=== PATIENT | male | born 1945 | race Caucasian/White ===

== ENCOUNTER 2020-01-27 19:57 | Emergency (ER) | payer OTHER ==
[~2020-01-27] VITALS: Ht 172.7 cm; Wt 81.7 kg
[2020-01-27] MEDS ORDERED: ACET500 PO (20:57)
[2020-01-27] MEDS ORDERED: AMLO5 PO (20:58)
[2020-01-27] MEDS ORDERED: ATOR20 PO (21:03)
[2020-01-27] MEDS ORDERED: RYTARY ER 48.71 EAC1 PO ×2 (21:05)
[2020-01-27] MEDS ORDERED: ARTIFICIAL TEAR15 M2 IO (21:06)
[2020-01-27] MEDS ORDERED: Catapres0.2 MG PO (21:07)
[2020-01-27] MEDS ORDERED: Vitamin D2000 UNIT PO (21:07)
[2020-01-27 21:08] LABS: BASOPHILS ABSOLUTE AUTO 0.07 K/mm3 (0.00-0.23); BASOPHILS PERCENT AUTO 1 % (0-2); EOSINOPHILS ABSOLUTE AUTO 0.14 K/mm3 (0.00-0.68); EOSINOPHILS PERCENT AUTO 1 % (0-6); Hematocrit 43.3 % (37.0-53.0); Hemoglobin 14.4 g/dL (13.5-17.5); IMMATURE GRAN ABSOLUTE AUTO 0.03 K/mm3 (0.00-0.10); IMMATURE GRAN PERCENT AUTO 0 % (0-1); LYMPHOCYTES ABSOLUTE AUTO 2.51 K/mm3 (0.84-5.20); LYMPHOCYTES PERCENT AUTO 23 % (21-46); MONOCYTES ABSOLUTE AUTO 1.17 K/mm3 (0.16-1.47); MONOCYTES PERCENT AUTO 11 % (4-13); Mean Corpuscular HGB 32.1 pg (26.0-34.0); Mean Corpuscular HGB Conc 33.3 g/dL (31.5-36.5); Mean Corpuscular Volume 97 fL (80-100); Mean Platelet Volume 10.3 fL (9.1-12.4); NEUTROPHILS ABSOLUTE AUTO 7.03 K/mm3 (1.96-9.15); NEUTROPHILS PERCENT AUTO 64 % (41-73); Platelet Count 279 K/mm3 (150-400); RDW Coefficient Variation 12.4 % (11.7-14.2); RDW Standard Deviation 45.1 fL (35.1-46.3); Red Blood Cell Count 4.48 M/mm3 (4.30-5.90); White Blood Cell Count 10.95 K/mm3 (4.00-11.30)
[2020-01-27] MEDS ORDERED: GABA400 PO (21:08)
[2020-01-27] MEDS ORDERED: DICL25ER PO (21:08)
[2020-01-27] MEDS ORDERED: DOCU100 PO (21:08)
[2020-01-27] MEDS ORDERED: HALO5 PO (21:09)
[2020-01-27] MEDS ORDERED: LATA.005SO RIGHTEYE (21:09)
[2020-01-27] MEDS ORDERED: LOSA25 PO (21:10)
[2020-01-27] MEDS ORDERED: LORA10ER PO (21:10)
[2020-01-27] MEDS ORDERED: MELA3 PO (21:11)
[2020-01-27] MEDS ORDERED: MEMANTINE HCL PO (21:11)
[2020-01-27] MEDS ORDERED: Milk Of Ma400 MG/5 M PO (21:12)
[2020-01-27] MEDS ORDERED: OMEP20ER PO (21:13)
[2020-01-27] MEDS ORDERED: POTA10T PO (21:14)
[2020-01-27] MEDS ORDERED: SENN187 PO (21:15)
[2020-01-27] MEDS ORDERED: QUET25 PO (21:15)
[2020-01-27] MEDS ORDERED: Thiamine HCl100 MG PO (21:16)
[2020-01-27 21:21] LABS: Alanine Aminotransfer (ALT/SGP 9 U/L (12-78); Albumin, Blood 4.2 g/dL (3.4-5.0); Albumin/Globulin Ratio 1.1 (0.8-1.8); Alk Phos 62 U/L (50-136); Anion Gap 8 mmol/L (6-16); Aspartate Aminotrans (AST/SGOT 26 U/L (12-37); Bilirubin, Total 0.6 mg/dL (0.1-1.0); Blood Urea Nitrogen 30 mg/dL (8-24); Bun/Creatinine Ratio 27.8 (12.0-20.0); CO2, Blood 24 mmol/L (21-32); Calcium, Blood 9.9 mg/dL (8.5-10.1); Chloride, Blood 114 mmol/L (98-108); Creatinine, Blood 1.08 mg/dL (0.60-1.20); Globulin, Blood 3.7 g/dL (2.2-4.0); Glomerular Filtration Rate >60 (60-); Glucose, Blood 109 mg/dL (70-99); Potassium, Blood 4.1 mmol/L (3.5-5.5); Sodium, Blood 146 mmol/L (136-145); Total Protein, Blood 7.9 g/dL (6.4-8.2)
[2020-01-27 22:11] LABS: Source, Urine Clean Catch
[2020-01-27 22:14] LABS: Bilirubin, Urine Neg (Neg); Blood, Urine 1+ (Neg); Glucose Qualitative, Urine Neg (Neg); Ketones, Urine 1+ (Neg); Leukocyte Esterase, Urine Neg (Neg); Nitrite, Urine Neg (Neg); Protein, Urine Neg (Neg); Urobilinogen, Urine NORM (Normal)
[2020-01-27 22:16] LABS: Appearance, Urine Clear (Clear); Color, Urine Yellow (P-Yellow)
[2020-01-27 22:20] LABS: Bacteria Few /hpf; Red Blood Cells, Urine 0-2 /hpf (0-2); Squamous Epithelial Cells Not Seen /hpf (Few); White Blood Cells, Urine 0-2 /hpf (0-5)
== END 2020-01-27 23:26 | disposition home or self-care (01) ==
LOC: ER 19:57
PROVIDERS: Emergency Medicine
DX: R41.82 Altered mental status, unspecified (principal); M54.2 Cervicalgia; Z88.8 Allergy status to other drugs, medicaments and biological substances; Z79.899 Other long term (current) drug therapy; W18.30XA Fall on same level, unspecified, initial encounter
CPT/HCPCS: 70450; 71045; 72125; 80053; 81001; 82140; 85025; 93005; 93010; 99285-25; A9270

== ENCOUNTER 2020-07-24 22:29 | Emergency (ER) | payer MEDICARE, OTHER ==
[~2020-07-24] VITALS: Ht 170.2 cm; Wt 70.3 kg
[~2020-07-24 22:29] MED LIST: ACET500 PO; AMLO5 PO; ARTIFICIAL TEAR15 M2 IO; ATOR20 PO; Catapres0.2 MG PO; DICL25ER PO; DOCU100 PO; GABA400 PO; HALO5 PO; LATA.005SO RIGHTEYE; LORA10ER PO; LOSA25 PO; MELA3 PO; MEMANTINE HCL PO; Milk Of Ma400 MG/5 M PO; OMEP20ER PO; POTA10T PO; QUET25 PO; RYTARY ER 48.71 EAC1 PO; SENN187 PO; Thiamine HCl100 MG PO; Vitamin D2000 UNIT PO
[2020-07-24 22:55] LABS: Calcium, Ionized (POC) 1.32 mmol/L (1.10-1.46); Chloride (POC) 103 mmol/L (98-108); Creatinine (POC) 0.8 mg/dL (0.8-1.3); Glucose (ISTAT POC) 98 mg/dL (70-99); Hemoglobin (POC) 11.9 g/dL (13.5-17.5); Potassium (POC) 3.7 mmol/L (3.5-5.5); Sodium (POC) 141 mmol/L (135-148); Total CO2 (POC) 26 mmol/L (21-32)
== END 2020-07-25 00:13 | disposition home or self-care (01) ==
LOC: ER 22:29
PROVIDERS: Emergency Medicine
DX: Z00.00 Encounter for general adult medical examination without abnormal findings (principal); Z79.899 Other long term (current) drug therapy; Z88.8 Allergy status to other drugs, medicaments and biological substances
CPT/HCPCS: 36415; 80047; 85014; 99284

== ENCOUNTER 2020-09-12 19:14 | Emergency (ER) | payer OTHER, MEDICARE ==
[~2020-09-12] VITALS: Ht 170.2 cm; Wt 63.5 kg
[2020-09-12 22:51] LABS: SARS-Cov-2 (COVID-19) PCR, MMC NEGATIVE (NEGATIVE)
[2020-09-13 00:01] LABS: BASOPHILS ABSOLUTE AUTO 0.07 K/mm3 (0.00-0.23); BASOPHILS PERCENT AUTO 1 % (0-2); EOSINOPHILS ABSOLUTE AUTO 0.14 K/mm3 (0.00-0.68); EOSINOPHILS PERCENT AUTO 2 % (0-6); Hematocrit 40.2 % (37.0-53.0); Hemoglobin 13.8 g/dL (13.5-17.5); IMMATURE GRAN ABSOLUTE AUTO 0.01 K/mm3 (0.00-0.10); IMMATURE GRAN PERCENT AUTO 0 % (0-1); LYMPHOCYTES PERCENT AUTO 23 % (21-46); MONOCYTES ABSOLUTE AUTO 0.75 K/mm3 (0.16-1.47); MONOCYTES PERCENT AUTO 11 % (4-13); Mean Corpuscular HGB 32.8 pg (26.0-34.0); Mean Corpuscular HGB Conc 34.3 g/dL (31.5-36.5); Mean Corpuscular Volume 96 fL (80-100); Mean Platelet Volume 10.1 fL (9.1-12.4); NEUTROPHILS ABSOLUTE AUTO 4.32 K/mm3 (1.96-9.15); NEUTROPHILS PERCENT AUTO 63 % (41-73); Platelet Count 225 K/mm3 (150-400); RDW Coefficient Variation 12.2 % (11.7-14.2); RDW Standard Deviation 43.1 fL (35.1-46.3); Red Blood Cell Count 4.21 M/mm3 (4.30-5.90); White Blood Cell Count 6.89 K/mm3 (4.00-11.30)
[2020-09-13 00:17] LABS: International Normalized Ratio 1.01; Prothrombin Time Results 10.9 Sec (9.7-11.5)
[2020-09-13 00:23] LABS: Alanine Aminotransfer (ALT/SGP 25 U/L (12-78); Albumin/Globulin Ratio 1.1 (0.8-1.8); Alk Phos 53 U/L (50-136); Anion Gap 5 mmol/L (6-16); Aspartate Aminotrans (AST/SGOT 23 U/L (12-37); Bilirubin, Total 0.4 mg/dL (0.1-1.0); Blood Urea Nitrogen 21 mg/dL (8-24); Bun/Creatinine Ratio 25.6 (12.0-20.0); CO2, Blood 26 mmol/L (21-32); Calcium, Blood 9.5 mg/dL (8.5-10.1); Chloride, Blood 111 mmol/L (98-108); Creatinine, Blood 0.82 mg/dL (0.60-1.20); Globulin, Blood 3.7 g/dL (2.2-4.0); Glomerular Filtration Rate >60 (60-); Glucose, Blood 96 mg/dL (70-99); Potassium, Blood 3.7 mmol/L (3.5-5.5); Sodium, Blood 142 mmol/L (136-145); Total Protein, Blood 7.7 g/dL (6.4-8.2)
== END 2020-09-13 03:20 | disposition short-term general hospital (02) ==
LOC: ER 19:14
PROVIDERS: Student in an Organized Health Care Education/Training Program
DX: H54.62 Unqualified visual loss, left eye, normal vision right eye (principal); H57.09 Other anomalies of pupillary function; Z88.8 Allergy status to other drugs, medicaments and biological substances; Z79.899 Other long term (current) drug therapy; Z20.822 Contact with and (suspected) exposure to COVID-19
CPT/HCPCS: 36415; 70450; 80053; 85025; 85610; 85730; 99285-25; J1644; U0004